=== PATIENT | female | born 1960 | race Caucasian/White ===

== ENCOUNTER 2023-07-06 11:27 | Outpatient (OUT) | payer OTHER, SELFPAY ==
--- NOTE | 2023-07-06 11:29 | MM_ITS ---
Patient Name: FAHAD JOHNSTON MR#: [id number] : 1960 Exam Date: 07/06/2023 Ordering Doctor: DR MARIANELA ESPINAL RADIOLOGY REPORT PROCEDURE: MM TOMOSYNTHESIS SCREENING BI COMPARISON: None. INDICATIONS: Screening Calculator Name NCI Breast Cancer Risk Assessment Tool 5 Year Breast Cancer Risk 1.00% Lifetime Breast Cancer Risk 4.40% Personal Breast Cancer No Personal Ovarian Cancer No Treatments None Family Cancers Mother with pancreatic cancer at age 76; Father with prostate cancer at age ~65. LOCATION: [facility] BREAST COMPOSITION: Heterogeneously dense,which may obscure small masses. FINDINGS: DIAGNOSTIC CATEGORY 2--BENIGN FINDING: RIGHT BREAST: No significant suspicious finding. Scattered benign-appearing nodules are present. No significant change has occurred. LEFT BREAST: No significant suspicious finding. Scattered benign-appearing calcifications are present. No significant change has occurred. RECOMMENDATIONS: ROUTINE MAMMOGRAM AND CLINICAL EVALUATION IN 12 MONTHS. PLEASE NOTE: A NORMAL MAMMOGRAM DOES NOT EXCLUDE THE POSSIBILITY OF BREAST CANCER. A CLINICALLY SUSPICIOUS PALPABLE LUMP SHOULD BE BIOPSIED. Dictated by: Michael Hines M.D. on 07/07/2023 at 13:37 Approved by: Michael Hines M.D. on 07/07/2023 at 13:40
== END 2023-07-06 11:28 | disposition home or self-care (01) ==
LOC: MAMMO 11:27
PROVIDERS: PCP Family Medicine; Visit Provider Family Medicine
DX: Z12.31 Encounter for screening mammogram for malignant neoplasm of breast (principal); Z80.8 Family history of malignant neoplasm of other organs or systems; Z80.42 Family history of malignant neoplasm of prostate
CPT/HCPCS: 77063; 77067

== ENCOUNTER 2024-11-26 09:20 | Outpatient (OUT) | payer MEDICARE, SELFPAY ==
--- OUTSIDE RECORDS SUMMARY | 2024-05-27 08:21 | XMS_ITS ---
Author Organization [facility] in [place] Address [address] [place] [address] Care Team Providers Care Silo Filler Name Role Phone Odalys Bell Primary Care Provider [phone] REASON FOR VISIT Ultrasound Appointment-FYI Encounters Encounter Location Date Provider Diagnosis [facility] [address] [place] [address] 05/27/2024 Odalys Bell Plan Of Treatment Next Appt Details Provider Name:Odalys Guo es, 05/21/2025 10:30:00 AM, [address] [place], [address], Progress Notes * Anne JOHNSTON SDOB: [birth year] (63 yo F)Acc No.[id number]:05/27/2024 Patient: Rosy Anne DIAZ :1960 A ge:63 Y S ex:Female Address:[address], [address] * true * Date: Generated for Printi ng/Faxing/eTransmitting on: 0 11/26/2024 09:26 AM EDT
--- OUTSIDE RECORDS SUMMARY | 2024-08-19 06:45 | XMS_ITS ---
Author Organization [facility] Address [address] [place] [id number] Care Team Providers Care Website Optimization Strategist Name Role Phone Sage Roper Unavailable [phone] REASON FOR VISIT Periodic Exam Social History Sex Assigned At : Social History Observation Description Sex Assigned At Female Encounters Encounter Location Date Provider Diagnosis [facility] [address] [place] [phone] 08/19/2024 Sage Roper Plan Of Treatment Next Appt Details Provider Name:Bita amado, 05/08/2025 10:45:00 AM, [address] [place] [address], [phone], Progress Notes * Beatriz JOHNSTONaDOB: 0 (64 yo F)Acc No.[id number]:08/19/2024 Patient: Beatriz BARRAGANa Provider: Ji Roper DDS :1960 A ge:63 Y S ex:Female Date:08/19/2024 Address:[address]-[phone] Subjective: * Chief Complaints: * 1 . Periodic Exam. * Medical History: Objective: * Vitals: Assessment: Plan: * Treatment: * Billing Information: * Visit Code: * Procedure Codes: * Electronic signature of Thaddeus Roper DDS on 11/26/2024 at 09:26 AM EDT Sign off status: Pending * Provider: Ji Roper DDS Date: 0 08/19/2024 Generated for Printi ng/Glen/Brendaitting on: 0 11/26/2024 09:26 AM EDT
--- OUTSIDE RECORDS SUMMARY | 2024-10-11 06:48 | XMS_ITS ---
Author Organization [facility] in [place] Address [address] [place] [address] Care Team Providers Care Disability Aide Name Role Phone Odalys Bell Primary Care Provider [phone] REASON FOR VISIT New Refill Request Medications Medication SIG (Take, Route, Frequency, Duration) Notes Start Date End Date Status Sertraline HCl 25 mg TAKE 1 TABLET ONCE DAILY Active Losartan Potassium 50 mg TAKE 1 TABLET DAILY Active Pravastatin Sodium 40 mg TAKE 1 TABLET ONCE DAILY Active hydroCHLOROthiazide 25 mg TAKE 1 TABLET DAILY IN THE MORNING Active Encounters Encounter Location Date Provider Diagnosis [facility] [address] [place] [address] 10/11/2024 Odalys Bell Essential hypertensi on I10 Assessments Encounter Date Diagnosis (ICD Code) Assessment Notes Treatment Notes Treatment Clinical Notes Section Notes 10/11/2024 Essential hypertension (ICD-10 - I10) Plan Of Treatment Medication Medication Name Sig Start Date Stop Date Notes Sertraline HCl 25 mg TAKE 1 TABLET ONCE DAILY Losartan Potassium 50 mg TAKE 1 TABLET DAILY Pravastatin Sodium 40 mg TAKE 1 TABLET ONCE DAILY hydroCHLOROthiazide 25 mg TAKE 1 TABLET DAILY IN THE MORNING Next Appt Details Provider Name:Odalys kumar, 05/21/2025 10:30:00 AM, [address] [place], [address], Progress Notes * Anne JOHNSTON SDOB: [birth year] (64 yo F)Acc No.[id number]:10/11/2024 Patient: Rosy Anne DIAZ :1960 A ge:64 Y S ex:Female Address:[address] [place] [address] , [place], [address] * Refills Refill Pravastatin Sodium Tablet, 40 mg, 90 Tablet, TAKE 1 TABLET ONCE DAILY, Refills=3 Refill Losartan Potassium Tablet, 50 mg, 90 Tablet, TAKE 1 TABLET DAILY, Refills=3 Refill Sertraline HCl Tablet, 25 mg, 90 Tablet, TAKE 1 TABLET ONCE DAILY, Refills=3 Refill hydroCHLOROthiazide Tablet, 25 mg, 90 Tablet, TAKE 1 TABLET DAILY IN THE MORNING, Refills=3 * true * Date: Generated for Yan mazariegos/Glen/Delilah on: 0 11/26/2024 09:26 AM EDT
--- OUTSIDE RECORDS SUMMARY | 2024-11-18 06:00 | XMS_ITS ---
Author Organization [facility] [place] [facility] [place] Address [address] [place] [address] Care Team Providers Care Pen Tester Name Role Phone Odalys Bell Primary Care Provider [phone] Allergies Allergen (clinical drug ingredient) Drug/Non Drug Allergy documented on EMR Reaction Allergy Type Onset Date Status Cymbalta Twitching Drug Allergy Active tramadol Tramadol itching Drug Allergy Active REASON FOR VISIT Welcome to Medicare Medications Medication SIG (Take, Route, Frequency, Duration) Notes Start Date End Date Status hydroCHLOROthiazide 25 mg TAKE 1 TABLET DAILY IN THE MORNING Active Glucosamine Chond MSM Formul a - as directed Orally Active Sertraline HCl 25 mg TAKE 1 TABLET ONCE DAILY Active Diclofenac Sodium 50 MG 1 tablet Orally Twice a day prn pain for 30 days 05/25/2022 Not-Taking Calcium 600 MG 1 tablet with meals Orally Twice a day for 30 day(s) Active Multivitamin Adult - as directed Orally Active Losartan Potassium 50 mg TAKE 1 TABLET DAILY Active Maxton 3-6-9 - as directed Orally Active Pravastatin Sodium 40 mg TAKE 1 TABLET O NCE DAILY Active Social History Tobacco Use: Social History Observation Description Date Details (start date - stop date) Never Smoker NA - NA Tobacco Use/Smoking Question Answer Notes Patient is a nonsmoker Vital Signs Weight 163.8 lbs 11/18/2024 Height 67 in 11/18/2024 Blood pressure systolic 132 mm Hg 11/19/19 25 Blood pressure diastolic 72 mm Hg 025 Heart Rate 86 /min 11/18/2024 Respiratory Rate 16 /min 11/18/2024 BMI 25.65 kg/m2 11/18/2024 Oximetry 95 % 11/18/2024 weight up 3 pounds in last 6 months Encounters Encounter Location Date Provider Diagnosis [facility] [address] [place] [address] 11/18/2024 Odalys Bell Other specified abnormal uterine and vaginal bleeding N93.8 ; Mixed hyperlipidemia E78.2 ; Essential hypertension I10 ; Major depressive disorder, recurrent, in full remission F33.42 ; Encounter for general adult medical examination without abnormal findings Z00.00 ; Pain in right knee M25.561 ; Other chronic pain G89.29 ; Trigger finger, left ring finger M65.342 ; Other benign neoplasm of skin of trunk D23.5 ; Asymptomatic menopausal state Z78.0 and Encounter for screening mammogram for malignant neoplasm of breast Z12.31 Assessments Encounter Date Diagnosis (ICD Code) Assessment Notes Treatment Notes Treatment Clinical Notes Section Notes 11/18/2024 Other specified abnormal uterine and vaginal bleeding (ICD-10 - N93.8) 11/18/2024 Mixed hyperlipidemia (ICD-10 - E78.2) 11/18/2024 Essential hypertension (ICD-10 - I10) 11/18/2024 Major depressive disorder, recurrent, in full remission (ICD-10 - F33.42) 11/18/2024 Encounter for general adult medical examination without abnormal findings (ICD-10 - Z00.00) 11/18/2024 Pain in right knee (ICD-10 - M25.561) 11/18/2024 Other chronic pain (ICD-10 - G89.29) 11/18/2024 Trigger finger, left ring finger (ICD-10 - M65.342) 11/18/2024 Other benign neoplasm of skin of trunk (ICD-10 - D23.5) Call Dermatology to have spot removed to left back, under bra strip 11/18/2024 Asymptomatic menopausal state (ICD-10 - Z78.0) 11/18/2024 Encounter for screening mammogram for malignant neoplasm of breast (ICD-10 - Z12.31) Plan Of Treatment Treatment Notes Assessment Notes Other benign neoplasm of skin of trunk C all Dermatology to have spot removed to left back, under bra strip Pending Test Test Name Order Date DEXA Axial Skeleton (hips, pelvis, spine )* 11/18/2024 MAMM SCREEN BILAT BERTRAM 3D GLOBAL* 2024 Next Appt Details Provider Name:Odalys Mcfarlane Emilbelinda josé, 05/21/2025 10:30:00 AM, [address] [facility], [place], [address], Progress Notes * Anne JOHNSTON SDOB: [birth year] (64 yo F)Acc No.[id number]:11/18/2024 UNLOCKED PROGRESS NOTE Progress Note Patient: Anne BARRAGAN Provider: Chani Bell MD :1960 A ge:64 Y S ex:Female Date:11/18/2024 Address:[address] [place], [place] [id number] Check In:10:01 AM ESTCheck O ut:11:12 AM EST Subjective: * Chief Complaints: * 1 . Welcome to Medicare. * HPI: Bashir garcia Annual Wellness Visit: Patient presents today for welcome to medicare. Patient states she has a spot on her back she would like looked at. She states it has been there for a few months and it is painful to the touch and dark in color.-MV Here for welcome to he has been doing some video exercises, thru [employer]. Has been having more right knee pain again - 2 weeks ago, could barely walk on it, but now better. Comes and goes. I encourgaged her to call Dr. Cobos, to discuss injections/gel shots. Has been bike riding more this summer, and usually doesn't have knee pain with that. Also has left hand trigger finger Has a new spot on her back, that is under bra strap, painful at times, and seems dark. Seems different than the cyst that she had before. Did not have any further vaginal spotting, and she thinks it was more of hemorrhoid spotting/irritation. Defers the welcome to since she will have it for pre-op for trigger finger. Would like to wait until next year for mamm UTD on cscope Willing to do bone density. Type of Visit: W elcome to Medicare Visit (IPPE). Visual Acuity: L : ___, R: ___. Other Providers of Care: C are Team reviewed with patient: Jewels kumar, and no updates needed Physical Activity: D o you exercise regularly? Y es T ype of exercise: W alking, Cycling F requency: _ __, Daily Nutrition/Diet: O n a typical day, how many servings of fruits and vegetables do you consume? 2 I n a typical week, how many servings of fried or high fat (such as cheese, fatty meat) do you consume? 0 I n a typical week, how many servings of high fiber or whole grain foods do you consume? 7 Seat Belt: D o you always use your seat belt in your car??Yes A re you having difficulties driving your car??No C an you get to places out of walking distance without help? Y es Dental: H ow would you describe the condition of your mouth and teeth, including any false teeth or dentures? E xcellent Medication List Follow-Up: D uring the past four weeks, how much bodily pain do you have? M oderate pain D o you have a current opioid prescription??No Self Assessment of Health: H ow would you rate your overall health the past four weeks? E xcellent H ow confident are you that you can control and manage most of your health problems? V dean confident H ow have things been going for you during the past four weeks? P retty well D uring the past four weeks, was someone available to help you if you needed and wanted help? Y es, as much as I wanted (Example: if you felt nervous, lonely, or blue; got sick and had to stay in bed; needed someone to talk to; help with daily chores; or needed help just taking care of yourself) D o you have any sexual problems? N o D o you have any troubles eating well? N o D o you have any problems with tiredness or fatigue? N o H ave you noticed any hearing difficulties??No Sun Exposure: D o you protect yourself from over exposure to the sun when outdoors? Y es Mental Wellness: D uring the past four weeks, how much have you been bothered by emotional problems such as feeling anxious, depressed, irritable, sad, or downhearted and blue? N ot at all D uring the past four weeks, has your physical and emotional health limited your social activities with family, friends, neighbors, or groups??Not at all Functional Ability and Safety Screening: D o you need assistance with any of the following? Select all that apply. N one D oes your home have rugs in the hallway, lack grab bars in the bathroom, lack handrails on the stairs or have poor lighting? N o D o you feel unsteady and/or dizzy when standing or walking? N o D o you have smoke detectors in your home and routinely change the batteries? Y es D o you have a fire extinguisher and know how to use it properly? Y es D o you have any problems with your living situation, food, transportation, utilities, or safety? N o Cognitive Screening: H ave you experienced any memory issues or problems with thinking? N o H ave your family members, friends, caretakers, or others raised any concerns? N o D o you get confused or easily distracted more than you used to? N o H as your ability to concentrate seem to have declined recently? N o O sukiall Cognitive Status I ntact End of Life Planning: D o you have a living will? N o D o you have a Durable Power of Natural Foods Clerk? N o W ould you like to discuss this topic today??No SDOH A gree to complete Social Determinants of Health questionnaire Y es W ithin the past 12 months, did you worry that your food would run out before you got money to buy more? N o W ithin the past 12 months, did the food you bought just not last and you didn't have money to buy more? N o W ithin the past 12 months, have you ever stayed: outside, in a car, in a a tent, in an overnight fpc, or temporarily in someone else's home??No A re you worried about losing your housing??No W ithin the past 12 months, have you been able to get utilities (heat, electricity) when it was really needed? N o W ithin the past 12 months, has a lack of transportation kept you from medical appointments or from doing things needed for daily living? N o D o you feel physically or emotionally unsafe where you currently live? N o W ould you like help with any of these needs that you have identified? N o D epression Screening: PHQ-2 (2015 Edition) L ittle interest or pleasure in doing things??Not at all F eeling down, depressed, or hopeless? N ot at all T otal Score 0 * ROS: G eneral/Constitutional: Chills d enies. F atigue d enies. F ever d enies. H EENT: Nasal congestion d enies. S ore throat d enies.?Runny Nose D enies. E ar Pain D enies. C ardiovascular: Lower Extremity Edema d enies. C hest pain d enies.?Palpitations d enies. R espiratory: Cough d enies. S hortness of breath d enies. W heezing d enies. G astrointestinal: Abdominal pain d enies. C onstipation d enies. D iarrhea d enies. N ausea d enies. G enitourinary: Urgency d enies. F requent urination d enies. P ainful urination d enies. M usculoskeletal: Body aches D enies. P ainful joints a dmits. W eakness d enies. S kin: Rash d enies. N eurologic: Dizziness d enies. H eadache d enies. ? P sychiatric: Depression d enies. A nxiety d enies. D ifficulty sleeping d enies. * Medical History: H yperlipidemia, Depresion/anxiety - started on zoloft 06/05, COVID 05/08, HTN, chronic R knee pain, Hemorrhoids. * Surgical History: C olonoscopy - internal and external hemorrhoids 11/2009, Endometrial Biopsy 2018, knee surgery 2020, colonoscopy - 12/2018 - normal - repeat in 10 years . * Family History: F ather: alive, heart valve issues. M other: , Pancreatic Cancer, diagnosed with Other malignant neoplasm of unspecified site. M igrated Family History:: Maternal grandmother's history of Heart Disease (V17.49);Paternal history of Prostate Cancer (V16.42);Maternal grandfather's history of Skin Cancer (V16.8);. Mother passed with pancreatic cancer Father has heart valve issues. * Social History: T obacco Use: T obacco Use/Smoking P atient is a n onsmoker * Medications: T aking Calcium 600 MG Tablet 1 tablet with meals Orally Twice a day , Taking Glucosamine Chond MSM Formula([employer]) - Tablet as directed Orally , Taking hydroCHLOROthiazide 25 mg Tablet TAKE 1 TABLET DAILY IN THE MORNING , Taking Losartan Potassium 50 mg Tablet TAKE 1 TABLET DAILY , Taking Multivitamin Adult(Multiple Vitamin) - Tablet as directed Orally , Taking Maxton 3-6-9 - Capsule as directed Orally , Taking Pravastatin Sodium 40 mg Tablet TAKE 1 TABLET ONCE DAILY , Taking Sertraline HCl 25 mg Tablet TAKE 1 TABLET ONCE DAILY , Not-Taking/PRN Diclofenac Sodium 50 MG Tablet Delayed Release 1 tablet Orally Twice a day prn pain , Medication List reviewed and reconciled with the patient * Allergies: C ymbalta: Twitching - Side Effects, Tramadol: itching. Objective: * Vitals: W t:163.8lbs, Ht: 67 in, BP:132/72mm Hg, HR:86/min, RR:16/min, BMI:25.65Index, Oxygen sat %:95%, Ht-cm: 170.18 cm, Wt-k.3 kg. weight up 3 pounds in last 6months. * Examination: G eneral Examination: GENERAL APPEARANCE: N o acute distress, Well hydrated, Well Developed. NECK: N zamzam supple, No thyromegaly, No cervical LAD. LUNGS: C lear to auscultation bilaterally, No wheezes, rales, rhonchi. CARDIO: R egular rate and rhythm, No murmurs, rubs, gallops. ABDOMEN: S oft, nontender, not distended, normal bowel sounds. SKIN: Warm and Dry, No suspicious lesions. EXTREMITIES: No edema. NEUROLOGIC/PSYCHIATRIC: A lert, Oriented,mood and affect appropriate. Assessment: * Assessment: 1. O ther specified abnormal uterine and vaginal bleeding - N93.8 2 . M ixed hyperlipidemia - E78.2 3 . E ssential hypertension - I10 4 .?Major depressive disorder, recurrent, in full remission - F33.42 5 . E ncounter for general adult medical examination without abnormal findings - Z00.00 6 .?Pain in right knee - M25.561 7 . O ther chronic pain - G89.29 8 . T sprigger finger, left ring finger - M65.342 9 . O ther benign neoplasm of skin of trunk - D23.5 1 0. A symptomatic menopausal state - Z78.0 ?11. E ncounter for screening mammogram for malignant neoplasm of breast - Z12.31 Plan: * Treatment: 2. A symptomatic menopausal state I maging: DEXA Axial Skeleton (hips, pelvis, spine)* 3. E ncounter for screening mammogram for malignant neoplasm of breast I maging: MAMM SCREEN BILAT BERTRAM 3D GLOBAL* * Procedure Codes: G 0402 PREV EXAM NEW MEDICARE * Preventive Medicine: Screenings/Counseling: F ALL RISK SCREENING Fall Risk Assessment: N o falls in the past year Are you afraid of falling? N o * * Electronic signature of Haseeb Bell MD, [id number] on 11/26/2024 at 09:26 AM EDT Sign off status: Pending Visit Status: Cornelio HK (Check Out) * Provider: Chani Bell MD Date: 0 11/18/2024 Generated for Kristini yair/Glen/eTransmitting on: 11/26/2024 09:26 AM EDT History and Physical Notes * HPI (History of Present Illness) Category Sub-Category Detail Notes Category Not es Medicare Annual Wellness Visit Type of Visit: Welcome to Medicare Visit (IPPE) Cognitive Screening: Have you experience d any memory issues or problems with thinking?: No Have your family members, fr iends, caretakers, or others raised any concerns?: No Do you get confused or easily distracted more than you used to?: No Has your ability to concentrate seem to have declined recently?: No Overall Cognitive Status: Intact Self Assessment of Health: How would you rate your overall health the past four weeks?: Excellent How confident are you that y ou can control and manage most of your health problems?: Very confident How have things been going f or you during the past four weeks?: Pretty well During the past four weeks, was someone available to help you if you needed and wanted help?: Yes, as much as I wanted (Example: if you felt nervous, lonely, o r blue; got sick and had to stay in bed; needed someone to talk to; help with daily chores; or needed help just taking care of yourself) Do you have any sexual problems?: No Do you have any troubles eating well?: N o Do you have any problems wit h tiredness or fatigue?: No Have you noticed any hearing difficulties?: No Physical Activity: Do you exercise regularly?: Y es Type of exercise:: Walking, Cycling Frequency:: ___, Daily Functional Ability and Safety Screening: Do you need assistance with any of the following? Select all that apply.: None Does your home have rugs in the hallway, lack grab bars in the bathroom, lack handrails on the stairs or have poor lighting?: No Do you feel unsteady and/or dizzy when s tanding or walking?: No Do you have smoke detectors in your home and routinely change the batteries?: Yes Do you have a fire extinguisher and know how to use it properly?: Yes Do you have any problems wit h your living situation, food, transportation, utilities, or safety?: No Visual Acuity: L: ___, R: ___ Nutrition/Diet: On a typical day, ho w many servings of fruits and vegetables do you consume?: 2 In a typical week, how many servings of fried or high fat (such as cheese, fatty meat) do you consume?: 0 In a typical week, how many servings of high fiber or whole grain foods do you consume?: 7 Seat Belt: Do you always use your seat belt in your car?: Yes Are you having difficulties driving your car?: No Can you get to places out of walking dis tance without help?: Yes Dental: How would you descri be the condition of your mouth and teeth, including any false teeth or dentures?: Excellent Medication List Follow-Up: During the four weeks, how much bodily pain do you have?: Moderate pain Do you have a current opioid prescriptio n?: No Mental Wellness: During the past four weeks, how much have you been bothered by emotional problems such as feeling anxious, depressed, irritable, sad, or downhearted and blue?: Not at all During the past four weeks, has your physical and emotional health limited your social activities with family, friends, neighbors, or groups?: Not at all Sun Exposure: Do you protect yours elf from over exposure to the sun when outdoors?: Yes End of Life Planning: Do you have a living will? : No Do you have a Durable Power of Natural Foods Clerk? : No Would you like to discuss this topic tod ay?: No Other Providers of Care: Care Team aim leon with patient:: Yes, and no updates needed SDOH Agree to complete So cial Determinants of Health questionnaire: Yes Within the past 12 months, did you worry that your food would run out before you got money to buy more?: No Within the past 12 months, did the food you bought just not last and you didn't have money to buy more?: No Within the past 12 months, have you ever stayed: outside, in a car, in a a tent, in an overnight fpc, or temporarily in someone else's home?: No Are you worried about losing your housing?: No Within the past 12 months, have you been able to get utilities (heat, electricity) when it was really needed?: No Within the past 12 months, has a lack of transportation kept you from medical appointments or from doing things needed for daily living?: No Do you feel physically or emotionally unsafe where you currently live?: No Would you like help with any of these needs that you have identified?: No Depression Screening PHQ-2 (2015 Edition) Little interest or pleasure in doing things?: Not at all Feeling down, depressed, or hopeless?: N ot at all Total Score: 0 Examination Category Sub-Category Detail Notes Category Not es General Examination GENERAL APPEARANCE: No acute distress, Well hydrated, Well Developed NECK: Neck supple, No thyr omegaly, No cervical LAD CARDIO: Regular rate and rhy thm, No murmurs, rubs, gallops LUNGS: Clear to auscultatio n bilaterally, No wheezes, rales, rhonchi ABDOMEN: Soft, nontender, not distended, normal bowel sounds SKIN: Warm and Dry, No alina picious lesions EXTREMITIES: No edema ENMT: NEUROLOGIC/PSYCHIATRIC: Alert, Oriented, mood and affect appropriate
--- NOTE | 2024-11-26 | MM_ITS ---
Patient Name: FAHAD JOHNSTON MR#: [id number] : 1960 Exam Date: 11/26/2024 Ordering Doctor: DR MARIANELA ESPINAL RADIOLOGY REPORT PROCEDURE: MM TOMOSYNTHESIS SCREENING BI COMPARISON: MM TOMOSYNTHESIS SCREENING BI, 07/06/2023. MG MAMM SCREEN 3D WEI CAD, 06/29/2022. MG MAMM LT UNI W CAD DIG, 01/25/2022. MG MAMM SCREEN WEI W CAD, 05/06/2020. INDICATIONS: Encounter for screening mammogram for malignant neoplasm Calculator Name NCI Breast Cancer Risk Assessment Tool 5 Year Breast Cancer Risk 1.10% Lifetime Breast Cancer Risk 4.20% Personal Breast Cancer No Personal Ovarian Cancer No Treatments None Family Cancers Mother with pancreatic cancer at age 76; Father with prostate cancer at age ~65. LOCATION: [facility] BREAST COMPOSITION: There are scattered areas of fibroglandular density. FINDINGS: DIAGNOSTIC CATEGORY 0--INCOMPLETE: NEED ADDITIONAL IMAGING EVALUATION. RIGHT BREAST: No significant suspicious finding. LEFT BREAST: Focal asymmetry central/lateral aspect of the left breast, posterior depth. RECOMMENDATIONS: ADDITIONAL MAMMOGRAPHIC VIEWS REQUIRED: LEFT BREAST - spot-compression/true lateral views, possible ultrasound are recommended. PLEASE NOTE: A NORMAL MAMMOGRAM DOES NOT EXCLUDE THE POSSIBILITY OF BREAST CANCER. A CLINICALLY SUSPICIOUS PALPABLE LUMP SHOULD BE BIOPSIED. Dictated by: Sarmad Underwood DO on 11/26/2024 at 16:05 Approved by: Sarmad Underwood DO on 11/26/2024 at 16:09
--- OUTSIDE RECORDS SUMMARY | 2024-11-26 09:26 | XMS_ITS | Patient Health Record ---
Author Organization [facility] Address [address] [place] [id number] Care Team Providers Care Walking Dragline Oiler Name Role Phone Sage [facility]oper Unavailable [phone] Allergies Allergen (clinical drug ingredient) Drug/Non Drug Allergy documented on EMR Reaction Allergy Type Onset Date Status duloxetine Cymbalta twitching Drug Allergy Active tramadol traMADol HCl itching Drug Allergy Acti ve Reason For Referral No Information Medications Medication SIG (Take, Route, Frequency, Duration) Notes Start Date End Date Status Pravastatin Sodium 40 MG TAKE 1 TABLET B Y MOUTH ONCE DAILY Oral; Duration: 90 Active Sertraline HCl 25 MG TAKE 1 TABLET BY MO UTH ONCE DAILY Oral; Duration: 90 Active hydroCHLOROthiazide 25 MG TAKE 1/2 TO 1 (ONE-HALF TO ONE) TABLET BY MOUTH ONCE DAILY IN THE MORNING Oral; Duration: 90 Active Losartan Potassium 50 MG TAKE 1 TABLET B Y MOUTH ONCE DAILY Oral; Duration: 90 Active Social History Sex Assigned At : Social History Observation Description Sex Assigned At Female Problems Problem Type SNOMED Code ICD Code Onset Dates Problem Status W/U Status Risk Notes Problem Body mass index 25-29 - overweight ([id number]) BMI 25.0-25.9, adult (Z68.25) Active confirmed Vital Signs Heart Rate 78 /min 10/14/2024 Blood pressure diastolic 85 mm Hg 10/14/2024 Weight-kg 72.58 kg 10/14/2024 Height 66 in 10/14/2024 Blood pressure systolic 151 mm Hg 10/14/2024 Weight 160 lbs 10/14/2024 BMI 25.82 kg/m2 10/14/2024 Encounters Encounter Location Date Provider Diagnosis [facility] [address] [place], [place] [id number] 10/14/2024 S[facility] R[facility] BMI 25.0-25.9,adul t Z68.25 ; Encounter for screening for dental disorders Z13.84 and Encounter for dental examination and cleaning without abnormal findings Z01.20 Assessments Encounter Date Diagnosis (ICD Code) Assessment Notes Treatment Notes Treatment Clinical Notes Section Notes 10/14/2024 BMI 25.0-25.9,adult (ICD-10 - Z68.25) 10/14/2024 Encounter for screening for dental disorders (ICD-10 - Z13.84) 10/14/2024 Encounter for dental examination and cleaning without abnormal findings (ICD-10 - Z01.20) Plan Of Treatment Next Appt Details Provider Name:Bita amado, 05/08/2025 10:45:00 AM, [facility] [place], [place], [id number], Insurance Providers Payer Name Payer Address Payer Phone Subscriber Number Group Number Insured Name Patient Relationship to Insured Coverage Start Date Coverage End Date [id number] [id number] [id number] Anne Wallis Self - patient is the insured
--- OUTSIDE RECORDS SUMMARY | 2024-11-26 09:26 | XMS_ITS | Clinical Summary ---
Author Organization [employer] Address [id number] [address] [place] [address] Care Team Providers Care Direct Sales Consultant Name Role Phone Odalys Bell MD Primary Care Provider [phone] Allergies Active Allergy Reactions Criticality Noted Date Comments Duloxetine Other (See Comments) Medium 10/24/2018 TWITCHING Orris Root High 10/30/2018 Ragweed Pollen High 10/30/2018 Adhesive Rash Medium 01/22/2021 Tramadol Itching 02/10/2021 Medications sertraline (ZOLOFT) 25 mg tabletIndication s:anxiety with depression Take 25 mg by mouth daily Indications: anxiousness associated with depression. 9 Active pravastatin (PRAVACHOL) 40 mg tablet Take 40 mg by mouth nightly. Active om 3/E/linol/ala/ol eic/gla/lip (OMEGA 3-6-9 ORAL) Take 1 tablet by mouth 2 (two) times a day. Active calcium carbonate (CALCIUM 600) 600 mg (1,500 mg) tablet Take 1 tablet by mouth daily. Active gluc sumner/chondro sumner A/vit C/Mn (glucosamine-cho ndroit-vit C-Mn) [id number] mg tablet Take 1 tablet by mouth daily. Active hydroCHLOROthiaz luis (HYDRODIURIL) 25 mg tabletIndication s:hypertension Take 1 tablet by mouth daily Indications: high blood pressure. Active losartan (COZAAR) 50 mg tablet Take 1 tablet by mouth daily. 0 Active multivit-min/iro n/folic acid/K (ADULTS MULTIVITAMIN ORAL) Take 1 tablet by mouth daily. Active Active Problems Problem Noted Date Diagnosed Date Encounter for preadmission testing 01/22/2021 Trigger middle finger of left hand 01/18/2021 Overview (01/18/2021): Added automatically from request for surgery [id number] Tear of medial meniscus of right knee, current 0 05/14/2020 Overview (05/14/2020): Added automatically from request for surgery [id number] Diarrhea 10/30/2018 Encounter for screening colonoscopy 10/30/2018 Immunizations Immunization Administration Dates Next Due COVID-19, mRNA, LNP-S, PF, 100mcg/0.5mL Dose 01/2021,06/27/2020 Family History Medical History Relation Name Comments Crohn's disease Brother 1 Arthritis Brother 2 Blood Clots Brother 3 No Known Problems Daughter Hyperlipidemia Father Hypertension Father Prostate cancer Father Skin cancer Maternal Grandfather Heart disease Maternal Grandmother Uterine cancer Maternal Grandmother Diabetes Mother Hyperlipidemia Mother Hypertension Mother Pancreatic cancer Mother Kidney disease Paternal Grandmother No Known Problems Sister 1 No Known Problems Sister 2 No Known Problems Son 1 No Known Problems Son 2 No Known Problems Son 3 Breast cancer Neg Hx Colon cancer Neg Hx Relation Name Status Comments Brother 1 Alive Brother 2 Alive Brother 3 Alive Daughter Alive Father Alive Maternal Grandfather (Age 76) Maternal Grandmother (Age 84) Mother (Age 77) Paternal Grandfather (Age 70) Paternal Grandmother (Age 66) Sister 1 Alive Sister 2 Alive Son 1 Alive Son 2 Alive Son 3 Alive Social History Tobacco Use Types Packs/Day Years Used Date Smoking Tobacco: Never Smokeless Tobacco: Never Alcohol Use Standard Drinks/Week Comments Yes 0 (1 standard drink = 0.6 oz pur e alcohol) once a month Childcare Answer Date Recorded Childcare Unknown 09/26/2018 Employment Answer Date Recorded Employment Unknown 09/26/2018 Purpose - Life Answer Date Recorded Purpose and direction in life Unknown Comments No Sex and Gender Information Value Date Recorded Sex Assigned at Female 04/28/2020 5:21 PM EST Legal Sex Female 11:54 AM EDT Gender Identity Female 04/28/2020 5:21 PM EST Sexual Orientation Straight 04/28/2020 5: 21 PM EST Last Filed Vital Signs Vital Sign Reading Time Taken Comments Blood Pressure 143/99 01/29/2021 12:45 PM EDT Pulse 62 01/29/2021 12:45 PM EDT Temperature 36 C (96.8 F) 01/29/2021 12:07 PM EDT Respiratory Rate 13 01/29/2021 12:45 PM EDT Oxygen Saturation 96% 01/29/2021 12:45 PM EDT Inhaled Oxygen Concentration - - Weight 70.8 kg (156 lb) 06/16/2021 1:16 PM EST Height 167.6 cm (5' 6 ) 06/16/2021 1:16 PM EST Body Mass Index 25.18 06/16/2021 1:16 PM EST Plan of Treatment Health Maintenance Due Date Last Done Comments Depression Screening 1971 Tobacco Screening 1971 Adult BMI Screening 09/10/1977 DTaP,Tdap and Td Vaccines (1 - Tdap) 09/10/1978 Zoster (Shingles) Vaccine (1 of 2) 09/10/2009 COVID-19 Vaccine (4 - 2023-2 5 season) 2023 03/26/2021, 07/25/2020, 06/27/2020 Fall Risk Screening 09/10/2024 Influenza Vaccine 12/16/2024 04/22/2020 Colonoscopy 01/11/2029 01/11/2019, 12/01/2009 Medical Devices Not on file Procedures Procedure Name Priority Date/Time Associated Diagnosis Comments COLONOSCOPY Routine 12/01/2009 from Last 3 Months or Most Recently Relevant to Health Maintenance Results * Colonoscopy (12/01/2009) us Not In System Ref Prov GI PROCEDURE ORDERABLES F inal Result [facility] EXTERNAL NON-INTERFACED REF LAB [id number] [place] [address] from Last 3 Months or Most Recently Relevant to Health Maintenance Insurance [employer] Care Teams Direct Sales Consultant Relationship Specialty Start Date End Date Odalys Bell MD [address] [place] [address] PCP - General Family Medicine 10/05/18
--- OUTSIDE RECORDS SUMMARY | 2024-11-26 09:26 | XMS_ITS | Patient Health Record ---
Author Organization [facility] [place] Address [address] [place] [address] Care Team Providers Care Staffing Director Name Role Phone Odalys Bell Primary Care Provider Allergies Allergen (clinical drug ingredient) Drug/Non Drug Allergy documented on EMR Reaction Allergy Type Onset Date Status Cymbalta Twitching Drug Allergy Active tramadol Tramadol itching Drug Allergy Active Results Component Value Reference Range Notes CMP (COMP MET HOWARD) w/eGFR CK D-EPI (Not yet reviewed by provider) Interpretation: Performing Lab:[facility], [address] [place], [address] Notes/Report: FACILITY: DR [facility] - OFFICE [id number] GLUCOSE 98 (74 - 106) MG/DL BUN 20 (4 - 25) MG/DL CREATININE, BLOOD 0.69 (0.52 - 1.04) MG/DL GFR by CKD-EPI 96.9 (60.0) ML/M1.7 SODIUM 143 (137 - 145) MMOL/L POTASSIUM 5.0 (3.5 - 5.1) MMOL/L CHLORIDE 110 (98 - 107) MMOL/L CARBON DIOXIDE 28 (22 - 30) MMOL/L CALCIUM 10.1 (8.6 - 10.6) MG/DL ALBUMIN 4.5 (3.5 - 5.0) G/DL TOTAL PROTEIN 8.0 (6.3 - 8.2) G/DL ALK PHOS 70 (38 - 126) U/L ALT (SGPT) 18 (1 - 35) U/L AST (SGOT) 26 (15 - 46) U/L BILIRUBIN, TOT 0.7 (0.2 - 1.3) MG/DL CBC WITH DIFF (Not yet revie wed by provider) Interpretation: Performing Lab:[facility], [address], [place], [address] Notes/Report: FACILITY: DR [facility] - OFFICE [id number] WBC 6.83 (3.80 - 10.60) x10^3ul RBC 4.95 (4.20 - 5.40) x10^6ul HEMOGLOBIN 14.6 (12.0 - 16.0) G/DL HEMATOCRIT 44.4 (37.0 - 47.0) % MCV 89.7 (81.0 - 99.0) fl MCH 29.5 (27.0 - 33.0) PG MCHC 32.9 (30.0 - 37.0) G/DL RDW-SD 48.4 (37.0 - 49.0) fl PLT 256 (130 - 400) x10^3ul SEGS 64.0 () % LYMPS 26.2 () % MONOS 7.2 () % EOSINOPHIL 1.6 () % BASOS 0.7 () % IMMATURE GRANS (IG) 0.3 () % ABS NEUTROPHIL 4.37 (1.50 - 7.00) x10^3ul ABS LYMPHOCYTE 1.79 (0.96 - 5.40) x10^3ul ABS MONOCYTE 0.49 (0.10 - 1.00) x10^3ul ABS EOSINOPHIL 0.11 (0.00 - 0.40) x10^3ul ABS BASOPHIL 0.05 (0.00 - 0.16) x10^3ul ABS IMMATURE GRANS 0.02 (0.00 - 0.11) x10^3ul LIPID PANEL (CHOL/TRIG/HDL/L DL) (Not yet reviewed by provider) Interpretation: Performing Lab:[facility], [address], [place], [address] Notes/Report: CHOL REFERENCE RANGE: DESIRABLE: < 200 MG/DL BORDERLINE: 200 - 239 MG/DL HIGH RISK: > 240 MG/DL HDL REFERENCE RANGE: DESIRABLE: >45 MG/DL BORDERLINE: 32 - 45 MG/DL HIGH RISK: < 32 MG/DL LDL REFERENCE RANGE: DESIRABLE: < 130 MG/DL BORDERLINE: 130 - 159 MG/DL HIGH RISK: > 160 MG/DL CHOL-HDL RATIO: MALE: LOW RISK : 0 - 5.0, MOD RISK: 5.1 - 9.6, HIGH RISK: > 9.6 FEMALE: LOW RISK : 0 - 4.4, MOD RISK: 4.5 - 7.1, HIGH RISK: > 7.1 FACILITY: DR [facility] - OFFICE [id number] CHOLESTEROL 209 (120 - 200) MG/DL TRIGLYCERIDES 155 (30 - 150) MG/DL HDL 47 (40.0 - 60.0) MG/DL LDL (CALC) 131 (0 - 130) MG/DL VLDL 31 (7 - 46) MG/DL CHOL-HDL RATIO 4.4 (0.0 - 4.4) Reason For Referral No Information Medications Medication SIG (Take, Route, Frequency, Duration) Notes Start Date End Date Status hydroCHLOROthiazide 25 mg TAKE 1 TABLET DAILY IN THE MORNING Active Glucosamine Chond MSM Formul a - as directed Orally Active Multivitamin Adult - as directed Orally Active Losartan Potassium 50 mg TAKE 1 TABLET DAILY Active [place] 3-6-9 - as directed Orally Active Sertraline HCl 25 mg TAKE 1 TABLET ONCE DAILY Active Pravastatin Sodium 40 mg TAKE 1 TABLET O NCE DAILY Active Diclofenac Sodium 50 MG 1 tablet Orally Twice a day prn pain for 30 days 05/25/2022 Not-Taking Calcium 600 MG 1 tablet with meals Orally Twice a day for 30 day(s) Active Immunizations Vaccine Route Administration Date Status Comme nts Flu, Flucelvax (98017) 4 yrs and older, multi-dose vial (4096-6462) IM Intramuscular 04/22/2020 Administered SARS-COV-2 (COVID 19 Moderna - 100mcg/0.5mL) Unknown 06/27/2020 Administered SARS-COV-2 (COVID 19 Moderna - 100mcg/0.5mL) Unknown 07/25/2020 Administered SARS-COV-2 (COVID 19 Moderna - Booster 0.25mL) Unknown 03/26/2021 Administered Social History Tobacco Use: Social History Observation Description Date Details (start date - stop date) Never Smoker NA - NA Tobacco Use/Smoking Question Answer Notes Patient is a nonsmoker Alcohol Screen (Audit-C) Question Answer Notes Did you have a drink containing alcohol in the p ast year? Yes How often did you have 6 or more drinks on one occasion in the past year? Never (0 point) Points 0 Interpretation Negative Problems Problem Type SNOMED Code ICD Code Onset Dates Problem Status W/U Status Risk Notes Problem 459263089 Mixed hyperlipidemia (E78.2) Active confirmed Problem 47779069 Major depressive disorder, recurrent, in full remission (F33.42) Active confirmed Problem 53561806 Other chronic pa in (G89.29) Active confirmed Problem 82617262109904 Other specified abnormal uterine and vaginal bleeding (N93.8) Active confirmed Problem 28113105 Anxiety (F41.9) Active confirmed Problem 57583292 Essential hypertension (I10) Active confirmed Vital Signs Heart Rate 86 /min 11/18/2024 weight up 3 alex nds in last 6months Respiratory Rate 16 /min 11/18/2024 weight up 3 pounds in last 6months Blood pressure diastolic 72 mm Hg 11/18/2024 noris ght up 3 pounds in last 6months Oximetry 95 % 11/18/2024 weight up 3 alex nds in last 6months Height 67 in 11/18/2024 weight up 3 alex nds in last 6months Blood pressure systolic 132 mm Hg 11/18/2024 weig ht up 3 pounds in last 6months Weight 163.8 lbs 11/18/2024 weight up 3 alex nds in last 6months BMI 25.65 kg/m2 11/18/2024 weight up 3 alex nds in last 6months Encounters Encounter Location Date Provider Diagnosis [address] [address] 11/18/2024 Odalys Bell Other specified abnormal uterine [...] mammogram for malignant neoplasm of breast Z12.[address] [address] 05/20/2024 Odalys Bell Encounter for genera l adult medical examination without abnormal findings Z00.00 ; Other specified abnormal uterine and vaginal bleeding N93.8 ; Mixed hyperlipidemia E78.2 ; Essential hypertension I10 and Major depressive disorder, recurrent, in full remission F33.42 [facility] [address] [place] [address] 04/22/2024 Odalys Bell Essential hypertensi on I10 [facility] [address] [place] [address] 05/27/2024 Odalys Steinnes [facility] [address] [place] [address] 10/11/2024 Odlays Bell Essential hypertensi on I10 [facility] [address] [place] [address] 01/29/2024 Odalys Bell Essential hypertensi on I10 and Pain in right knee M25.561 [place] [address] [place] [address] 04/22/2024 Odalys Bell Essential hypertensi on I10 Assessments Encounter Date Diagnosis (ICD Code) Assessment Notes Treatment Notes Treatment Clinical Notes Section Notes 04/22/2024 Essential hypertension (ICD-10 - I10) 05/20/2024 Other specified abnormal uterine and vaginal bleeding (ICD-10 - N93.8) Please get US at [facility] and let us know about mineralogy professor that we can refer to 05/20/2024 Encounter for general adult medical examination without abnormal findings (ICD-10 - Z00.00) 11/18/2024 Other specified abnormal uterine and vaginal bleeding (ICD-10 - N93.8) 01/29/2024 Essential hypertension (ICD-10 - I10) 04/22/2024 Essential hypertension (ICD-10 - I10) 10/11/2024 Essential hypertension (ICD-10 - I10) 01/29/2024 Pain in right knee (ICD-10 - M25.561) 11/18/2024 Mixed hyperlipidemia (ICD-10 - E78.2) 05/20/2024 Mixed hyperlipidemia (ICD-10 - E78.2) Check labs, continue current med 05/20/2024 Essential hypertension (ICD-10 - I10) BP stable, continue current meds 11/18/2024 Essential hypertension (ICD-10 - I10) 11/18/2024 Major depressive disorder, recurrent, in full remission (ICD-10 - F33.42) 05/20/2024 Major depressive disorder, recurrent, in full remission (ICD-10 - F33.42) Stable, continue current med 11/18/2024 Encounter for general adult medical examination [...] breast (ICD-10 - Z12.31) Plan Of Treatment Pending Test Test Name Order Date LIPID PANEL (CHOL/TRIG/HDL/LDL) 05/20/19 25 CBC WITH DIFF 05/20/2024 DEXA Axial Skeleton (hips, pelvis, spine )* 11/18/2024 US Transvaginal Pelvic 05/20/2024 MAMM SCREEN BILAT BERTRAM 3D GLOBAL* 2024 MAMM DIAG BILAT BERTRAM 3D GLOBAL* 06/21/19 23 CMP (COMP MET HOWARD) w/eGFR CKD-EPI 2024 Next Appt Details Provider Name:Odalys kumar, 05/21/2025 10:30:00 AM, [address] [place], [address], Insurance Providers Payer Name Payer Address Payer Phone Subscriber Number Group Number Insured Name Patient Relationship to Insured Coverage Start Date Coverage End Date [employer] [address] [place] [phone] [id number] Anne Wallis Self - patient is the insured Medical (General) History Medical History History ICD Code Hyperlipidemia Depresion/anxiety - started on zoloft COVID 05/08 HTN chronic R knee pain hemorrhoids Surgical History Surgery Date(Month/Year) Endometrial Biopsy 2018 knee surgery 2020 colonoscopy - 12/2018 - normal - repeat i n 10 years Colonoscopy - internal and external hemo rrhoids 11/2009
--- OUTSIDE RECORDS SUMMARY | 2024-11-26 09:27 | XMS_ITS | Clinical Summary ---
Author Organization [facility] Address [address] [place] [address] Care Team Providers Care [employer] Crewmember Name Role Phone Unavailable Primary Care Provider Unavailabl e Social History Tobacco Use Types Packs/Day Years Used Date Smoking Tobacco: Never Assessed Comments Unknown Sex and Gender Information Value Date Recorded Sex Assigned at Not on file Legal Sex Female 7:21 PM EDT Gender Identity Not on file Sexual Orientation Not on file Last Filed Vital Signs Vital Sign Reading Time Taken Comments Blood Pressure 138/80 06/12/2018 12:00 PM EST Pulse - - Temperature - - Respiratory Rate - - Oxygen Saturation - - Inhaled Oxygen Concentration - - Weight 69.9 kg (154 lb) 06/12/2018 12:00 PM EST Height 168.9 cm (5' 6.5 ) 06/12/2018 12:00 PM ES T Body Mass Index 24.48 06/12/2018 12:00 PM EST Plan of Treatment Not on file Insurance [address] [id number] [employer]
== END 2024-11-26 09:21 | disposition home or self-care (01) ==
PROVIDERS: PCP Family Medicine; Visit Provider Family Medicine
DX: Z78.0 Asymptomatic menopausal state (principal); Z12.31 Encounter for screening mammogram for malignant neoplasm of breast; Z80.42 Family history of malignant neoplasm of prostate; Z80.8 Family history of malignant neoplasm of other organs or systems; R92.8 Other abnormal and inconclusive findings on diagnostic imaging of breast; M85.88 Other specified disorders of bone density and structure, other site
CPT/HCPCS: 77063; 77067; 77080